=== PATIENT | female | born 1945 | race African-American/Black ===

== ENCOUNTER 2016-03-08 10:14 | Outpatient (CLI) | payer MEDICARE, MEDICAID ==
[2016-03-08 10:55] LABS: Hemoglobin 10.4 g/dL (12.0-16.0); Mean Corpuscular HGB CONC 31.2 g/dL (32.0-36.0); Mean Corpuscular Hemoglobin 22.8 pg (27.0-31.0); Mean Platelet Volume 10.1 fL (7.4-10.4); Platelet Count 255 thou/uL (130-400); RBC Distribution Width 12.4 % (11.5-14.5); Red Blood Cell (RBC) Count 4.56 mill/uL (4.20-5.40)
[2016-03-08 10:56] LABS: Hemoglobin A1c 6.2 % (4.0-6.0); White Blood Cell (WBC) Count 4.5 thou/uL (4.8-10.8)
[2016-03-08 11:00] LABS: Anisocytosis SLIGHT = 6-15 cells (100X) (0-5/hpf); Eosinophils 2 % (0-10); Lymphocytes 42 % (21-51); MDiff Complete? YES; Manual Diff?? YES; Microcytosis SLIGHT = 6-15 cells (100X) (0-5/hpf); Monocytes 7 % (0-10); Neutrophil 49 % (42-75); Poikilocytosis SLIGHT = 6-15 cells (100X) (0-5/hpf)
[2016-03-08 11:01] LABS: ALT (SGPT) 10 U/L (0-55); AST (SGOT) 16 U/L (5-34); Alkaline Phosphatase 87 U/L (40-150); Anion Gap 14 mmol/L (10-20); BUN (Urea Nitrogen) 21 mg/dL (9.8-20.1); Bilirubin, Total 0.3 mg/dL (0.2-1.2); Calc. Creatinine Clearance 0 mL/min (70-130); Calcium 10.5 mg/dL (7.8-10.44); Carbon Dioxide 27 mmol/L (23-31); Chloride 101 mmol/L (98-107); Cholesterol 199 mg/dL (< 200 Desired); Elliptocytes SLIGHT = 2-5 cells (100X) (0-1/hpf); Estimated GFR-MDRD 61; Globulin 3.5 g/dL (2.4-3.5); Glucose 113 mg/dL (80-115); HDL Cholesterol 66 mg/dL (>60 Neg Risk); Hypochromia SLIGHT = 6-15 cells (100X) (0-5/hpf); LDL Cholesterol, Calculated 122 mg/dL; Potassium 4.1 mmol/L (3.5-5.1); Protein, Total 7.5 g/dL (5.8-8.1); Sodium 138 mmol/L (136-145); Tear Drops SLIGHT = 2-5 cells (100X) (0-1/hpf); Triglycerides 57 mg/dL (Less than 150)
[2016-03-08 17:49] LABS: Creatinine, Urine 79.04 mg/dL (47-110); Microalbumin Urine Less than 1.0 mg/dL (0.5-50.0); Microalbumin/Creat Ratio 12.7 mg/g (Less than 30)
== END 2016-03-08 10:15 | disposition home or self-care (01) ==
LOC: MADLABBHPM 10:14
PROVIDERS: ATTEND Family Medicine
DX: E78.5 Hyperlipidemia, unspecified (principal); E11.9 Type 2 diabetes mellitus without complications; D50.9 Iron deficiency anemia, unspecified; N18.9 Chronic kidney disease, unspecified; M25.569 Pain in unspecified knee
CPT/HCPCS: 36415; 80053; 80061; 82043; 82306; 82570; 83036; 85025

== ENCOUNTER 2016-04-13 20:35 | Emergency (ER) | payer MEDICARE, MEDICAID ==
[2016-04-13] MEDS ORDERED: predniSONE 20 MG TAB ONE (21:23)
--- NOTE | 2016-04-13 21:32 | RAD ---
TWO VIEWS CHEST: 04/13/16 PROVIDED CLINICAL HISTORY: Cough. FINDINGS: Comparison is made with the study dated 07/11/09. The cardiac and mediastinal silhouette is within normal limits. No focal consolidation, pleural flui d, or pneumothorax apparent. Multiple bridging osteophytes involving the thoracic spine redemonstrat ed, suggesting changes of DISH. IMPRESSION: No evidence for an acute cardiopulmonary process. POS: [facility]
== END 2016-04-13 21:30 | disposition home or self-care (01) ==
LOC: MADERS 20:35
DX: J40 Bronchitis, not specified as acute or chronic (principal); I10 Essential (primary) hypertension; E11.9 Type 2 diabetes mellitus without complications; Z79.899 Other long term (current) drug therapy
CPT/HCPCS: 71020; 94640; J7506; J7620

== ENCOUNTER 2016-07-19 08:35 | Outpatient (CLI) | payer MEDICARE, MEDICAID ==
[2016-07-19 09:32] LABS: Eosinophils 2 % (0-10); Hemoglobin 10.5 g/dL (12.0-16.0); Lymphocytes 45 % (21-51); MDiff Complete? YES; Mean Corpuscular HGB CONC 30.4 g/dL (32.0-36.0); Mean Corpuscular Hemoglobin 22.1 pg (27.0-31.0); Mean Corpuscular Volume 72.9 fl (81.0-99.0); Mean Platelet Volume 8.9 fL (7.4-10.4); Microcytosis SLIGHT = 6-15 cells (100X) (0-5/hpf); Monocytes 5 % (0-10); Neutrophil 48 % (42-75); PLT Morphology Comment Appears Adequate; Platelet Count 191 thou/uL (130-400); RBC Distribution Width 12.4 % (11.5-14.5); Red Blood Cell (RBC) Count 4.74 mill/uL (4.20-5.40); White Blood Cell (WBC) Count 2.8 thou/uL (4.8-10.8)
[2016-07-19 15:28] LABS: Hemoglobin A1c 6.6 % (4.0-6.0)
[2016-07-19 15:52] LABS: ALT (SGPT) 12 U/L (8-55); AST (SGOT) 16 U/L (5-34); Albumin 3.9 g/dL (3.4-4.8); Alkaline Phosphatase 108 U/L (40-150); Anion Gap 11 mmol/L (10-20); BUN (Urea Nitrogen) 21 mg/dL (9.8-20.1); Bilirubin, Total Less than 0.3 mg/dL (0.2-1.2); Calc. Creatinine Clearance 0 mL/min (70-130); Calcium 9.4 mg/dL (7.8-10.44); Carbon Dioxide 28 mmol/L (23-31); Chloride 104 mmol/L (98-107); Cholesterol 185 mg/dl (< 200 Desired); Estimated GFR-MDRD 63; Globulin 3.4 g/dL (2.4-3.5); Glucose 122 mg/dL (80-115); HDL Cholesterol 61 mg/dL (>60 Neg Risk); LDL Cholesterol, Calculated 113 mg/dL; Potassium 4.1 mmol/L (3.5-5.1); Protein, Total 7.3 g/dL (6.0-8.3); Sodium 139 mmol/L (136-145); Triglycerides 55 mg/dL (Less than 150)
[2016-07-19 16:48] LABS: Thyroid Stimulating Hormone 0.8044 uIU/mL (0.35-4.94); Vitamin D, 25 Hydroxy 32.5 ng/mL (> 30.0)
[2016-07-19 17:41] LABS: Creatinine, Urine 128.37 mg/dL (47-110); Microalbumin Urine Less than 1.0 mg/dL (0.5-50.0); Microalbumin/Creat Ratio 7.8 mg/g (Less than 30)
== END 2016-07-19 08:36 ==
LOC: MADLABBHPM 08:35
PROVIDERS: ATTEND Family Medicine
DX: E78.5 Hyperlipidemia, unspecified (principal); E11.22 Type 2 diabetes mellitus with diabetic chronic kidney disease; I12.9 Hypertensive chronic kidney disease with stage 1 through stage 4 chronic kidney disease, or unspecified chronic kidney disease; N18.9 Chronic kidney disease, unspecified; D50.9 Iron deficiency anemia, unspecified; M17.12 Unilateral primary osteoarthritis, left knee
CPT/HCPCS: 36415; 80053; 80061; 82043; 82306; 83036; 84443; 85025

== ENCOUNTER 2016-08-20 08:45 | Emergency (ER) | payer MEDICARE, MEDICAID ==
[2016-08-20] MEDS ORDERED: HYDROcodone/Acetaminophen 5/325 mg Tablet ONE (09:31)
--- NOTE | 2016-08-20 09:45 | RAD ---
LEFT LEG TWO VIEWS: History: Injury. FINDINGS: There are post op changes of total knee replacement. No acute fracture or dislocation is seen. POS: [facility]
== END 2016-08-20 09:34 | disposition home or self-care (01) ==
LOC: MADERS 08:45
DX: S80.12XA Contusion of left lower leg, initial encounter (principal); I10 Essential (primary) hypertension; K21.9 Gastro-esophageal reflux disease without esophagitis; Z79.84 Long term (current) use of oral hypoglycemic drugs; Z79.899 Other long term (current) drug therapy; W18.30XA Fall on same level, unspecified, initial encounter

== ENCOUNTER 2016-08-30 10:01 | Outpatient (CLI) | payer MEDICARE, MEDICAID ==
--- NOTE | 2016-08-30 13:18 | RAD ---
LEFT ANKLE 3 VIEWS: HISTORY: Fall, left ankle pain. FINDINGS/IMPRESSION: No acute fracture or dislocation is seen. The ankle mortise is maintained. Soft tissue swelling is present. POS: [facility]
== END 2016-08-30 10:02 | disposition home or self-care (01) ==
LOC: MADRAD 10:01
PROVIDERS: ATTEND Family Medicine
DX: M25.572 Pain in left ankle and joints of left foot (principal); M25.472 Effusion, left ankle

== ENCOUNTER 2017-04-14 11:22 | Outpatient (CLI) | payer MEDICARE, MEDICAID ==
--- NOTE | 2017-04-14 13:58 | RAD ---
RIGHT HIP: Three views. HISTORY: Right hip pain for 2 days. FINDINGS: There are mild degenerative changes at the hip with mild spurring from the femoral head to mild media l joint narrowing. No fracture or focal osseous lesion seen. IMPRESSION: Evidence of mild degenerative changes involving the right hip. POS: [facility]
--- NOTE | 2017-04-14 14:29 | RAD ---
LEFT SHOULDER 3 VIEWS: HISTORY: Pain. No trauma. COMPARISON: None. FINDINGS: There is no significant degenerative change. No fracture or dislocation with respect to the proximal humerus. There is a horizontally oriented lucency involving the scapula. Findings may represent a nutrient channel. Reference made to a chest radiograph from 04/13/16 does not demonstrate any similar finding. Given the history of pain, the possibility of a nondisplaced fracture cannot be excluded. Better interrogation with CT is recommended. IMPRESSION: Lucency involving the left scapula/glenoid. Better interrogation with CT is recommended. CODE T POS: [facility]
== END 2017-04-14 11:23 | disposition home or self-care (01) ==
LOC: MADRAD 11:22
PROVIDERS: ATTEND Family Medicine
DX: M25.551 Pain in right hip (principal); M25.512 Pain in left shoulder; M16.11 Unilateral primary osteoarthritis, right hip

== ENCOUNTER 2017-05-02 13:55 | Emergency (ER) | payer MEDICARE, MEDICAID ==
[2017-05-02] MEDS ORDERED: Triamcinolone 40 MG/ML VIAL ONE (14:14)
[2017-05-02] MEDS ORDERED: Lidocaine 1% 20 ML MDV ONE (14:14)
== END 2017-05-02 14:30 | disposition home or self-care (01) ==
LOC: MADERS 13:55
DX: M17.11 Unilateral primary osteoarthritis, right knee (principal); I10 Essential (primary) hypertension; K21.9 Gastro-esophageal reflux disease without esophagitis; E11.9 Type 2 diabetes mellitus without complications; Z79.899 Other long term (current) drug therapy; Z79.84 Long term (current) use of oral hypoglycemic drugs
CPT/HCPCS: 20610; J2001; J3301

== ENCOUNTER 2017-05-17 14:51 | Emergency (ER) | payer MEDICARE, MEDICAID ==
[2017-05-17] MEDS ORDERED: Naproxen 500 MG TAB ONE (15:56)
--- NOTE | 2017-05-17 16:05 | RAD ---
PA AND LATERAL CHEST X-RAY 05/17/17 HISTORY: Cough with left shoulder pain and neck pain. COMPARISON: 04/13/16. FINDINGS: The cardiac silhouette and pulmonary vasculature are within normal limits. Lungs remain clear. Vascul ar calcifications are seen in the thoracic aorta. Degenerative changes are again seen in the spine wi th multiple bridging osteophytes again present suggesting changes of DISH. There has been no interval change from the prior exam. IMPRESSION: Stable chest without evidence of an acute cardiopulmonary process. POS: [facility]
[2017-05-17] MEDS ORDERED: HYDROcodone/Acetaminophen 10/325 mg Tablet ONE (16:48)
[2017-05-17] MEDS ORDERED: Diazepam 5 MG TAB ONE (16:48)
== END 2017-05-17 16:55 | disposition home or self-care (01) ==
LOC: MADERS 14:51
DX: M62.838 Other muscle spasm (principal); I10 Essential (primary) hypertension; K21.9 Gastro-esophageal reflux disease without esophagitis; E11.9 Type 2 diabetes mellitus without complications; Z79.82 Long term (current) use of aspirin; Z79.84 Long term (current) use of oral hypoglycemic drugs; Z79.899 Other long term (current) drug therapy
CPT/HCPCS: 71046

== ENCOUNTER 2017-05-23 10:29 | Outpatient (CLI) | payer MEDICARE, MEDICAID ==
--- NOTE | 2017-05-23 11:15 | RAD ---
THREE VIEW RIGHT KNEE: Clinical history: Pain, locking sensation. FINDINGS: There is endstage osteoarthrosis of the right knee with obliteration of the medial joint compartment and moderate narrowing of the lateral compartment. There is bulky osteophytosis in a tricompartmental distribution. Chondrocalcinosis is seen. Minimal joint gaseous destruction of the suprapatellar burs a present. No acute fracture visualized. IMPRESSION: Endstage arthropathy of the right knee. POS: [facility]
[2017-05-23 17:02] LABS: Iron 46 ug/dL (50-170); Iron Binding Capacity, Total 255 mcg/dL (265-497)
[2017-05-23 17:26] LABS: Folate (Folic Acid) 11.1 ng/mL (7.0-31.4)
== END 2017-05-23 10:30 | disposition home or self-care (01) ==
LOC: MADLAB 10:29
PROVIDERS: ATTEND Orthopaedic Surgery
DX: M17.11 Unilateral primary osteoarthritis, right knee (principal); D50.9 Iron deficiency anemia, unspecified
CPT/HCPCS: 36415; 82607; 82728; 82746; 83540; 83550

== ENCOUNTER 2017-06-23 08:53 | Outpatient (CLI) | payer MEDICARE, MEDICAID ==
[2017-06-23 09:50] LABS: ALT (SGPT) 7 U/L (8-55); AST (SGOT) 10 U/L (5-34); Albumin 3.7 g/dL (3.4-4.8); Alkaline Phosphatase 89 U/L (40-150); Anion Gap 18 mmol/L (10-20); BUN (Urea Nitrogen) 21 mg/dL (9.8-20.1); Bilirubin, Total 0.3 mg/dL (0.2-1.2); Calc. Creatinine Clearance 0 mL/min (70-130); Calcium 10.6 mg/dL (7.8-10.44); Carbon Dioxide 26 mmol/L (23-31); Cardiac Risk 3.5 (Less than 4.5); Chloride 99 mmol/L (98-107); Cholesterol 180 mg/dl (< 200 Desired); Estimated GFR-MDRD 70; Globulin 3.7 g/dL (2.4-3.5); Glucose 144 mg/dL (80-115); HDL Cholesterol 51 mg/dL (>60 Neg Risk); LDL Cholesterol, Calculated 116 mg/dL; Potassium 4.2 mmol/L (3.5-5.1); Protein, Total 7.4 g/dL (6.0-8.3); Sodium 139 mmol/L (136-145); Triglycerides 63 mg/dL (Less than 150)
--- NOTE | 2017-06-23 10:23 | RAD ---
CERVICAL SPINE FOUR VIEWS: History: Chronic neck pain. FINDINGS: Cervical vertebrae maintain height and alignment. There are moderate degenerative changes present. Lo ss of disc space is noted at C4-5 and C5-6. Prominent anterior osteophytes are noted at C4-5, C5-6, a nd C6-7. Posterior spondolytic changes are noted at C4-5, C5-6. Facet hypertrophy is noted. IMPRESSION: Moderate degenerative change of the cervical spine. POS: [facility]
--- NOTE | 2017-06-23 11:26 | RAD ---
RIGHT SHOULDER TWO VIEWS: History: Right shoulder pain. FINDINGS: Degenerative changes are present. No acute fracture, dislocation or bony destruction is seen. Calcifi c densities in the acromiohumeral space and in the inframedial aspect of the head of the right humeru s which may represent loose bodies. POS: [facility]
[2017-06-23 17:23] LABS: Hemoglobin A1c 7.7 % (4.0-6.0)
[2017-06-23 17:39] LABS: Creatinine, Urine 102.35 mg/dL (47-110); Microalbumin Urine Less than 1.0 mg/dL (0.5-50.0)
== END 2017-06-23 08:54 | disposition home or self-care (01) ==
LOC: MADLABBHPM 08:53
PROVIDERS: ATTEND Family Medicine
DX: M54.2 Cervicalgia (principal); M25.511 Pain in right shoulder; E11.9 Type 2 diabetes mellitus without complications; M47.892 Other spondylosis, cervical region
CPT/HCPCS: 36415; 72050; 80053; 80061; 82043; 83036

== ENCOUNTER 2017-08-08 13:34 | Emergency (ER) | payer MEDICARE, MEDICAID ==
--- NOTE | 2017-08-08 15:24 | RAD ---
LEFT HAND 2 VIEWS: Date: 08/08/17 INDICATION: Swelling and pain DIP joints. Third DIP joint especially painful. 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 Recommend clinical correlation. There are degenerative changes at the trapezoid and first metacarpal. There is fusion of the lunate and capitate. There is bony fusion of the first MCP joint. The other MCP joints show joint narrowing without significant erosive change. Prominent degenerative changes are seen in the IP joints of all fingers. IP joint of the thumb shows joint narrowing and hypertrophic spurring. Hypertrophic spurring seen at all IP joints with findings very prominent at the DIP joints of the second and third digits. The degenerative hypertrophic change s are most pronounced at the DIP joint of the third digit. IMPRESSION: 1. Degenerative changes of the IP joints as described above, most pronounced at the DIP joint of the third digit. 2. Fusion of first MCP joint and evidence of prior resection of the scaphoid and trapezium. POS: [facility]
[2017-08-08] MEDS ORDERED: Naproxen 500 MG TAB ONE (16:14)
[2017-08-08] MEDS ORDERED: predniSONE 10 MG TAB ONE (16:14)
[2017-08-08] MEDS ORDERED: HYDROcodone/Acetaminophen 10/325 mg Tablet ONE (16:14)
== END 2017-08-08 16:38 | disposition home or self-care (01) ==
LOC: MADERS 13:34
DX: M15.1 Heberden's nodes (with arthropathy) (principal); I10 Essential (primary) hypertension; K21.9 Gastro-esophageal reflux disease without esophagitis; Z79.899 Other long term (current) drug therapy; Z79.82 Long term (current) use of aspirin
CPT/HCPCS: J7512

== ENCOUNTER 2017-09-26 10:02 | Emergency (ER) | payer MEDICARE, MEDICAID ==
--- NOTE | 2017-09-26 11:46 | RAD ---
RIGHT KNEE FOUR VIEWS: HISTORY: Right knee pain. FINDINGS: Tricompartmental degenerative changes are present, manifested by osteophyte formation and joint space narrowing. No fracture, dislocation, or bony destruction is identified. IMPRESSION: Right knee osteoarthritis. POS: [facility]
[2017-09-26] MEDS ORDERED: Ibuprofen 400 MG TAB ONE (11:55)
== END 2017-09-26 11:58 | disposition home or self-care (01) ==
LOC: MADERS 10:02
DX: M25.561 Pain in right knee (principal); I10 Essential (primary) hypertension; E11.9 Type 2 diabetes mellitus without complications; K21.9 Gastro-esophageal reflux disease without esophagitis; M19.90 Unspecified osteoarthritis, unspecified site; Z79.84 Long term (current) use of oral hypoglycemic drugs; Z79.899 Other long term (current) drug therapy; Z79.82 Long term (current) use of aspirin

== ENCOUNTER 2020-07-27 22:06 | Emergency (ER) | payer MEDICARE, MEDICAID ==
[2020-07-27 22:59] LABS: Band 1 % (5-11); Eosinophils 3 % (0-10); Giant Platelets SLIGHT; Hemoglobin 9.2 g/dL (12.0-16.0); Hypochromia SLIGHT = 6-15 cells (100X) (0-5/hpf); Large Platelets SLIGHT; Lymphocytes 39 % (21-51); MDiff Complete? YES; Mean Corpuscular HGB CONC 27.8 g/dL (32.0-36.0); Mean Corpuscular Hemoglobin 21.1 pg (27.0-31.0); Monocytes 9 % (0-10); Neutrophil 48 % (42-75); Ovalocytes SLIGHT = 2-5 cells (100X) (0-1/hpf); Platelet Count 289 thou/uL (130-400); Platelet Morphology Comment Appears Adequate; Red Blood Cell (RBC) Count 4.37 mill/uL (4.20-5.40); White Blood Cell (WBC) Count 6.8 thou/uL (4.8-10.8)
[2020-07-27 23:06] LABS: ALT (SGPT) 7 U/L (8-55); AST (SGOT) 15 U/L (5-34); Albumin 4.1 g/dL (3.4-4.8); Alkaline Phosphatase 121 U/L (40-110); Anion Gap 15 mmol/L (10-20); BUN (Urea Nitrogen) 28 mg/dL (9.8-20.1); Bilirubin, Total 0.3 mg/dL (0.2-1.2); CK (CPK) 59 U/L (29-168); Calc. Creatinine Clearance 0 mL/min (70-130); Calcium 10.1 mg/dL (7.8-10.44); Carbon Dioxide 22 mmol/L (23-31); Chloride 105 mmol/L (98-107); Globulin 4.3 g/dL (2.4-3.5); Glucose 114 mg/dL (83-110); Potassium 4.2 mmol/L (3.5-5.1); Protein, Total 8.4 g/dL (5.8-8.1); Sodium 138 mmol/L (136-145)
[2020-07-27 23:07] LABS: CKMB 0.8 ng/mL (0-6.6)
[2020-07-28] MEDS ORDERED: Aspirin Chewable 81 MG TAB ONE (00:35)
[2020-07-28] MEDS ORDERED: Sodium Chloride 0.9% 1,000 ML ONE (00:47)
== END 2020-07-28 02:27 | disposition short-term general hospital (02) ==
LOC: MADERS 22:06
DX: I26.93 Single subsegmental thrombotic pulmonary embolism without acute cor pulmonale (principal); D50.9 Iron deficiency anemia, unspecified; I10 Essential (primary) hypertension; K21.9 Gastro-esophageal reflux disease without esophagitis; E11.9 Type 2 diabetes mellitus without complications; M19.90 Unspecified osteoarthritis, unspecified site; Z79.899 Other long term (current) drug therapy; Z79.84 Long term (current) use of oral hypoglycemic drugs; Z79.82 Long term (current) use of aspirin
CPT/HCPCS: 71046; 71275; 80053; 82550; 82553; 84484; 85025; 85379; 93005; J7050

== ENCOUNTER 2020-11-14 20:52 | Emergency (ER) | payer MEDICARE, OTHER ==
[2020-11-15] MEDS ORDERED: Acetaminophen 325 MG TAB ONE (00:11)
== END 2020-11-15 00:38 | disposition home or self-care (01) ==
LOC: MADERS 20:52
DX: S63.601A Unspecified sprain of right thumb, initial encounter (principal); S70.01XA Contusion of right hip, initial encounter; M16.11 Unilateral primary osteoarthritis, right hip; I10 Essential (primary) hypertension; E11.9 Type 2 diabetes mellitus without complications; Z86.711 Personal history of pulmonary embolism; Z79.84 Long term (current) use of oral hypoglycemic drugs; Z79.899 Other long term (current) drug therapy; W19.XXXA Unspecified fall, initial encounter
CPT/HCPCS: 70450

== ENCOUNTER 2021-03-25 09:16 | Emergency (ER) | payer MEDICARE, OTHER ==
[2021-03-25] MEDS ORDERED: Ibuprofen 800 MG TAB ONE (10:03)
== END 2021-03-25 10:19 | disposition home or self-care (01) ==
LOC: MADERS 09:16
DX: M54.41 Lumbago with sciatica, right side (principal); I10 Essential (primary) hypertension; E11.9 Type 2 diabetes mellitus without complications; K21.9 Gastro-esophageal reflux disease without esophagitis; M19.90 Unspecified osteoarthritis, unspecified site; Z86.711 Personal history of pulmonary embolism
CPT/HCPCS: 99283

== ENCOUNTER 2022-01-29 13:26 | Emergency (ER) | payer OTHER, MEDICAID ==
[2022-01-29 14:14] LABS: #Eosinphils 0.2 thou/uL (0.0-0.7); #Lymphocytes 1.7 thou/uL (1.20-3.40); #Monocytes 0.6 thou/uL (0.11-0.59); %Basophils 0.6 % (0.0-1.0); %Eosinophils 3.5 % (0.0-10.0); %Lymphocytes 30.2 % (21.0-51.0); %Monocytes 10.3 % (0.0-10.0); %Neutrophils 55.4 % (42.0-75.0); Hemoglobin 9.9 g/dL (12.0-16.0); Hypochromia SLIGHT = 6-15 cells (100X) (0-5/hpf); MDiff Complete? YES; Mean Corpuscular HGB CONC 30.2 g/dL (32.0-36.0); Mean Corpuscular Hemoglobin 22.4 pg (27.0-31.0); Mean Corpuscular Volume 74.2 fl (78.0-98.0); Mean Platelet Volume 8.2 fL (7.4-10.4); Microcytosis SLIGHT = 6-15 cells (100X) (0-5/hpf); Platelet Count 237 10x3/uL (130-400); RBC Distribution Width 12.4 % (11.5-14.5); Red Blood Cell (RBC) Count 4.41 mill/uL (4.20-5.40); White Blood Cell (WBC) Count 5.5 10x3/uL (4.8-10.8)
[2022-01-29 14:38] LABS: Anion Gap 14 mmol/L (10-20); BUN (Urea Nitrogen) 24 mg/dL (9.8-20.1); Calc. Creatinine Clearance 0 mL/min (70-130); Calcium 9.5 mg/dL (7.8-10.44); Carbon Dioxide 25 mmol/L (23-31); Chloride 108 mmol/L (98-107); Estimated GFR 41; Glucose 159 mg/dL (83-110); Potassium 4.5 mmol/L (3.5-5.1); Sodium 142 mmol/L (136-145)
== END 2022-01-29 16:10 | disposition short-term general hospital (02) ==
LOC: MADERS 13:26
DX: M79.662 Pain in left lower leg (principal); K21.9 Gastro-esophageal reflux disease without esophagitis; I10 Essential (primary) hypertension; E11.9 Type 2 diabetes mellitus without complications; M19.90 Unspecified osteoarthritis, unspecified site; Z86.711 Personal history of pulmonary embolism; Z79.84 Long term (current) use of oral hypoglycemic drugs; Z79.82 Long term (current) use of aspirin; Z79.899 Other long term (current) drug therapy
CPT/HCPCS: 36415; 80048; 85025; 85379

== ENCOUNTER 2022-04-18 12:43 | Emergency (ER) | payer MEDICAID, OTHER ==
[2022-04-18] MEDS ORDERED: Ibuprofen 800 MG TAB ONE (13:35)
[2022-04-18] MEDS ORDERED: HYDROcodone/Acetaminophen 5/325 mg Tablet ONE (14:18)
== END 2022-04-18 14:19 | disposition home or self-care (01) ==
LOC: MADERS 12:43
DX: S92.522A Displaced fracture of middle phalanx of left lesser toe(s), initial encounter for closed fracture (principal); X58.XXXA Exposure to other specified factors, initial encounter

== ENCOUNTER 2022-09-06 10:31 | Emergency (ER) | payer OTHER | END 2022-09-06 11:57 | disposition home or self-care (01) | LOC: MADERS 10:31 | DX: J02.9 Acute pharyngitis, unspecified (principal); E11.9 Type 2 diabetes mellitus without complications; K21.9 Gastro-esophageal reflux disease without esophagitis; I10 Essential (primary) hypertension; Z79.84 Long term (current) use of oral hypoglycemic drugs; Z79.82 Long term (current) use of aspirin | CPT/HCPCS: 87081; 87430; 99283 ==

== ENCOUNTER 2023-05-02 11:15 | Emergency (ER) | payer MEDICARE | END 2023-05-02 12:11 | disposition home or self-care (01) | LOC: MADERS 11:15 | DX: M12.9 Arthropathy, unspecified (principal); E11.9 Type 2 diabetes mellitus without complications; I10 Essential (primary) hypertension; I26.99 Other pulmonary embolism without acute cor pulmonale; Z79.82 Long term (current) use of aspirin; Z79.84 Long term (current) use of oral hypoglycemic drugs ==